=== PATIENT | female | born 1990 | race Caucasian/White ===

== ENCOUNTER 2017-05-01 16:41 | Emergency (ER) | payer OTHER ==
[~2017-05-01] VITALS: Ht 165.1 cm; Wt 59.9 kg
[~2017-05-01 16:41] MED LIST: AMOXICILLIN PO; ATARAX PO; BENADRYL PO; CIPRO PO; ELIMITE60 GM TOP; FERROUS SULFATE PO; FLEXERIL PO; MACROBID100 MG DOB; MEDROL4 MG/DOSE- PO; MONISTAT VG; NO MEDICATIONS; PRENATAL MULITV1 TAB PO; PRENATAL1 TA1 PO; PYRIDIUM PO; RONDEC TABLET1 TAB PO; TAMIFLU75 MG PO; ZOFRAN PO; ZOLOFT
== END 2017-05-01 19:00 | disposition left against medical advice (07) ==
LOC: CED 16:41
DX: Z53.21 Procedure and treatment not carried out due to patient leaving prior to being seen by health care provider (principal)